=== PATIENT | female | born 1940 | race Caucasian/White ===

== ENCOUNTER 2021-07-28 06:15 | Day surgery (SDC) | payer OTHER ==
[2021-07-23 09:34] VITALS: BMI 38.1
[2021-07-28] MEDS ORDERED: POVIDONE-IODINE 5% OPHTHALMIC PREP 30 ML SOLUTION ONE (07:05)
[2021-07-28] MEDS ORDERED: TETRACAINE 0.5% OPHTH SOLN 2 ML BOTTLE ONE (07:05)
[2021-07-28] MEDS ORDERED: ERYTHROMYCIN 0.5% OPHTHALMIC OINTMENT 3.5 GM TUBE ONE (07:05)
[2021-07-28] MEDS ORDERED: LIDOCAINE 1%/EPI 1:100000 (20 ML MULTI DOSE VIAL) ONE (07:06)
[2021-07-28] MEDS ORDERED: BUPIVACAINE HCL 50 ML ONE (07:06)
[2021-07-28] MEDS ORDERED: BACITRACIN 3.5 GM OPTHALMIC OINT TUBE ONE (07:16)
[2021-07-28] MEDS ORDERED: ceFAZolin SODIUM 1 GM VIAL ONE ×2 (07:16→08:00)
[2021-07-28] MEDS ORDERED: PROPOFOL 20 ML ONE ×3 (08:00)
[2021-07-28] MEDS ORDERED: MIDAZOLAM HCL 2 MG/2 ML SINGLE DOSE VIAL ONE ×2 (08:00→09:40)
[2021-07-28] MEDS ORDERED: DEXAMETHASONE SOD PHOSPHATE 4 MG/1 ML VIAL ONE (08:00)
[2021-07-28] MEDS ORDERED: ONDANSETRON 4 MG/2 ML VIAL ONE (08:00)
[2021-07-28] MEDS ORDERED: SUCCINYLCHOLINE CHLORIDE 200 MG/10 ML SYRINGE ONE (08:00)
[2021-07-28] MEDS ORDERED: KETOROLAC TROMETHAMINE 30 MG/1 ML VIAL ONE (08:00)
[2021-07-28] MEDS ORDERED: KETAMINE HCL 200 MG/20 ML VIAL ONE (08:00)
[2021-07-28] MEDS ORDERED: ONDANSETRON 4 MG/2 ML VIAL IVPUSH PRN (10:16)
[2021-07-28] MEDS ORDERED: oxyCODONE HCL 5 MG TABLET PO PRN (10:16)
[2021-07-28] MEDS ORDERED: ACETAMINOPHEN 325 MG TABLET (FP) ONE (10:21)
[2021-07-28] MEDS ORDERED: ACETAMINOPHEN 325 MG TABLET (FP) PO ONE (11:00)
[2021-07-28 12:11] VITALS: BP 108/57; PULSE 69; TEMP 97.8
== END 2021-07-28 11:55 | disposition home or self-care (01) ==
LOC: FASU 06:15
PROVIDERS: ATTEND Ophthalmology
PROC: 0W020ZZ Alteration of Face, Open Approach (ICD-10-PCS; principal; 2021-07-28 08:18)
PROC: 08SP0ZZ Reposition Left Upper Eyelid, Open Approach (ICD-10-PCS; 2021-07-28 08:18)
DX: H02.423 Myogenic ptosis of bilateral eyelids (principal); H02.834 Dermatochalasis of left upper eyelid; H02.831 Dermatochalasis of right upper eyelid
CPT/HCPCS: 82962; 94760